=== PATIENT | female | born 1995 | race Caucasian/White ===

== ENCOUNTER 2017-03-22 18:24 | Emergency (ER) | payer SELFPAY ==
[~2017-03-22] VITALS: Ht 175.3 cm; Wt 63.5 kg
== END 2017-03-22 19:42 | disposition home or self-care (01) ==
LOC: ED 18:24
DX: J02.9 Acute pharyngitis, unspecified (principal); R51 Headache; R68.84 Jaw pain; R50.9 Fever, unspecified; M79.1 Myalgia; R53.81 Other malaise

== ENCOUNTER → 2017-06-15 | Emergency (ER) | payer BC ==
[~2017-06-15] VITALS: Ht 175.3 cm; Wt 63.5 kg
--- OUTSIDE RECORDS SUMMARY | 2017-06-15 16:51 | XMS | Clinical Summary ---
Demographics + + + | Address | [address] | | | [place] [address] | + + + | Home Phone | | + + + | Preferred Language | Unknown | + + + | Marital Status | Single | + + + | Voodoo Affiliation | 1041 | + + + | Race | Unknown | + + + | Ethnic Group | Unknown | + + + Author + + + | Author | [facility] | | | and [place] | + + + | Organization | [facility] | | | and [place] | + + + | Address | Unknown | + + + | Phone | Unavailable | + + + Support + + +---------+ + | Name | Relationship | Address | Phone | + + +---------+ + | Rajiv Esposito | ECON | Unknown | | | Janusz/Stacie Rivera | | | | + + +---------+ + Care Team Providers + +------+ + | Care Internet Specialist Name | Role | Phone | + +------+ + | Starr Bowman | PP | | | 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 | Disp. | Refills | Star | End | Statu | | | | | | t | Date | s | | | | | | Date | | | + + +--------+---------+------+------+-------+ | | Place 1 each | | | | | Activ | | etonogestrel-ethinyl | vaginally See Admin | | | | | e | | estradiol | Instructions. Insert | | | | | | | (NUVARING) | vaginally and leave | | | | | | | 0.12-0.015 MG/24HR | in place for 3 | | | | | | | vaginal ring | consecutive weeks, | | | | | | | | then remove for 1 | | | | | | | | week. | | | | | | + + +--------+---------+------+------+-------+ | tiZANidine | Take 4 mg by mouth | | | | | Activ | | (ZANAFLEX) 4 mg | as needed. | | | | | e | | tablet | | | | | | | + + +--------+---------+------+------+-------+ | 27-0.8 mg | Take 1 tablet by | | | | | Activ | | multivitamin tablet | mouth Daily. | | | | | e | + + +--------+---------+------+------+-------+ | Fexofenadine HCl | Take by mouth. | | | | | Activ | | (NGA PO) | | | | | | e | + + +--------+---------+------+------+-------+ | LORazepam (ATIVAN) | Take 1 tablet by | 12 | 0 | 03/1 | | Activ | | 1 mg tablet | mouth every 8 hours | tablet | | 8/20 | | e | | | as needed for | | | 17 | | | | | Anxiety. | | | | | | + + +--------+---------+------+------+-------+ | metroNIDAZOLE | take 1 tablet by | | 0 | 03/1 | | Activ | | (FLAGYL) 500 MG | mouth twice a day | | | 5/20 | | e | | tablet | for 7 days | | | 17 | | | + + +--------+---------+------+------+-------+ | fluticasone | instill 2 sprays | | 0 | 08/1 | | Activ | | (FLONASE) 50 | into each nostril | | | 5/20 | | e | | mcg/nasal spray | twice a day | | | 17 | | | + + +--------+---------+------+------+-------+ | DULoxetine | take 1 capsule by | | 0 | 08/1 | | Activ | | (CYMBALTA) [address] | mouth once daily for | | | 5/20 | | e | | capsule | 1 week then 2 | | | 17 | | | | | capsules once daily | | | | | | + + +--------+---------+------+------+-------+ Active Problems + + + | Problem | Noted Date | + + + | Cervicalgia | 04/08/2016 | + + + | Cervical dystonia | 04/08/2016 | + + + | Thoracic outlet syndrome | 04/08/2016 | + + + | Daily headache | 04/08/2016 | + + + | Migraine with aura and without status migrainosus, not | 04/08/2016 | | intractable | | + + + | Low back pain radiating to lower extremity | 04/08/2016 | + + + | OTHER SPECIFIED INTESTINAL MALABSORPTION | | + + + Social History + +-------+ +--------+------+ | Tobacco Use | Types | Packs/Day | Years | Date | | | | | Used | | + +-------+ +--------+------+ | Never Smoker | | | | | + +-------+ +--------+------+ + + +---------+ + | Alcohol Use | Drinks/We | oz/Week | Comments | | | ek | | | + + +---------+ + | Yes | 0 | 0.0 | | | | Standard | | | | | drinks or | | | | | | | | | | equivalen | | | | | t | | | + + +---------+ + + + + | Sex Assigned at | Date Recorded | | | | + + + | Not on file | | + + + Last Filed Vital Signs + + + + | Vital Sign | Reading | Time Taken | + + + + | Blood Pressure | 106/72 | 03/08/20171516 PST | + + + + | Pulse | 100 | 03/08/20171516 PST | + + + + | Temperature | 37.3 C (99.1 F) | 03/08/20171516 PST | + + + + | Respiratory Rate | 16 | 01/30/2017 1638 PST | + + + + | Oxygen Saturation | 98% | 05/30/2016 0947 PDT | + + + + | Inhaled Oxygen | - | - | | Concentration | | | + + + + | Weight | 64.4 kg (142 lb) | 03/08/20171516 PST | + + + + | Height | 170.2 cm (5' 7") | 03/08/20171516 PST | + + + + | Body Mass Index | 22.24 | 03/08/20171516 PST | + + + + Plan of Treatment +--------+ + + + + | Date | Type | Specialty | Care Team | Description | +--------+ + + + + | 07/09/ | Procedure | | Gregorio Ochoa, | | | 2017 | visit | | MD [address] | | | | | | [place] | | | | | | [phone] | | | | | | | | +--------+ + + + + + + + + + | Health Maintenance | Due Date | Last Done | Comments | + + + + + | Vaccine: HPV (1 of 3 | | | | | - Female 3 Dose | 6 | | | | Series) | | | | + + + + + | Vaccine: | | | | | Dtap/Tdap/Td (1 - | 4 | | | | Tdap) | | | | + + + + + | CERVICAL CANCER | | | | | SCREENING (PAP EVERY | 6 | | | | 3 YEARS 21-64 ) | | | | + + + + + | Vaccine: Influenza | | | | | (Season Ended) | 8 | | | + + + + + Results Not on filefrom Last 3 Months Insurance +---------+--------+ +------+ +---------+ | Payer | Benefi | Subscriber | Type | Phone | Address | | | t Plan | ID | | | | | | / | | | | | | | Group | | | | | +---------+--------+ +------+ +---------+ | PREMERA | PREMER | xxxxxxxxxxx | PPO | +- | | | | A | x | [phone] | | | | PREFER | | | | | | | [place] | | | | | +---------+--------+ +------+ +---------+ + +--------+ +--------+ + + | Guarantor Name | Accoun | Relation to | Date | Phone | Billing Address | | | t Type | Patient | of | | | | | | | | | | + +--------+ +--------+ + + | ALINA ESPOSITO | Person | Self [birth year] Home: | [id number] | | | al/[place] | | 1995 | [phone] [place], [place] | | | [place] | | | [phone] | + +--------+ +--------+ + +
--- OUTSIDE RECORDS SUMMARY | 2017-06-15 16:51 | XMS | Clinical Summary ---
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
== END ==
LOC: ED 16:29
DX: S80.01XA Contusion of right knee, initial encounter (principal); R07.81 Pleurodynia; N94.6 Dysmenorrhea, unspecified; W55.12XA Struck by horse, initial encounter
CPT/HCPCS: 36415; 84703; 85025; 99283